=== PATIENT | male | born 1965 | race Caucasian/White ===

== ENCOUNTER 2022-12-12 18:54 | Emergency (ER) | payer BC, SELFPAY ==
[2022-12-12 18:55] VITALS: BP 177/99; PULSE 95; RESP 20; TEMP 36.7; O2SAT 100; BMI 35.1
--- NOTE | 2022-12-12 19:04 | ECG_ITS ---
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 Measurements Intervals [place] Rate: 93 P: 24 NE: 150 QRS: -79 QRSD: 146 T: -3 QT: 385 QTc: 480 Interpretive Statements SINUS RHYTHM RIGHT BUNDLE BRANCH BLOCK [120+ ms QRS DURATION, UPRIGHT V1, 40+ ms S IN I/aVL/V4/V5/V6] LEFT ANTERIOR FASCICULAR BLOCK [QRS AXIS <= -45, QR IN I, RS IN II] POSSIBLE SEPTAL MYOCARDIAL INFARCTION , OF INDETERMINATE AGE [30 ms Q WAVE IN V1/V2] No previous ECG available for comparison Electronically Signed On 12-12-2022 21:07:33 CDT by Jean De La Fuente M.D. [id number]
--- NOTE | 2022-12-12 19:15 | W.ED.CHESTPA ---
HPI - Chest Pain General: Chief Complaint: Chest Pain Stated Complaint: CHEST PAIN Time Seen by Provider: 12/12/22 19:15 History of Present Illness: Mr Mathias is a 57-year-old gentleman with longstanding history of hypertension and relatively recent hospitalization for new onset atrial fibrillation presenting to the emergency department for palpitations and chest discomfort. Reports he was in [facility] in the ICU for new onset A-fib and was discharged on medications which she has been taking. Today he noted some mild palpitations and chest discomfort. Since onset symptoms have persisted and are mild to moderate. No other specific changes in health, exacerbating, or alleviating factors identified. Onset (ago): hour(s) Timing of current episode: constant Prior episodes: Yes Onset: during rest Pain location: substernal Pain radiation: none Severity: mild Relieving factors: nothing Exacerbating factors: nothing Associated symptoms: Reports nausea and palpitations Review of Systems General: Reports: 10 or more systems reviewed and unremarkable except in HPI and below Card: Reports: palpitations GI: Reports: nausea PFSH ED PFSH: Medical History (Updated 12/20/22 @ 00:02 by CHULA Parsons) Atrial fibrillation CKD (chronic kidney disease) HTN (hypertension) Surgical History (Updated 12/12/22 @ 19:25 by Momo Simental MD) History of nephrectomy Physical Exam Const: COMMON NORMALS: alert GENERAL APPEARANCE: cooperative and well developed HENMT: COMMON NORMALS: normocephalic and atraumatic HEAD & SCALP: normocephalic and atraumatic THROAT: posterior oropharynx normal Eye: COMMON NORMALS: conjunctivae normal CONJUNCTIVA: Yes conjunctivae normal SCLERA: sclerae normal Neck/C-Spine: COMMON NORMALS: supple GENERAL: Yes trachea midline Resp: COMMON NORMALS: normal respiratory effort EFFORT & INSPECTION: Yes able to speak in complete sentences Cardio: COMMON NORMALS: regular rate and regular rhythm RATE: regular rate RHYTHM: regular rhythm GI: COMMON NORMALS: Soft to palpation PALPATION: Yes Soft to palpation and No Tenderness to palpation present (GI) PERCUSSION: normal to percussion Extremity: GENERAL: Yes normal exam except as noted and No edema Neuro: COMMON NORMALS: moves all extremities SENSORIUM/ORIENTATION: Yes alert and No Orientation impaired Psych: COMMON NORMALS: mental status grossly normal and Normal thought process present THOUGHT PROCESS: Normal thought process present Course Vital Signs: Vital signs: Vital Signs Temperature 98.1 F 12/12/22 18:55 Pulse Rate 95 12/12/22 23:05 Respiratory Rate 17 12/12/22 23:05 Blood Pressure 134/109 12/12/22 23:05 Pulse Oximetry 97 12/12/22 23:05 Oxygen Delivery Me thod Room Air 12/12/22 21:22 MDM - Chest Pain Medical Decision Making 57-year-old gentleman presenting with chest discomfort. Recent diagnosis of A-fib and inpatient management at outside facility. EKG demonstrates sinus rhythm with right bundle branch block, no STEMI. Labs with mild leukocytosis, normal hemoglobin and platelet count. Metabolic panel with perhaps mild dehydration. Magnesium low. Negative range 2-hour delta troponin. Chest x-ray with no lobar consolidation or pneumothorax. On review of prior records labs are similar. I do not believe that inpatient management is required for additional testing. Plan to increase Cardizem. The results of ED evaluation were discussed with the patient including prescriptions and/or symptomatic cares (if applicable) including appropriate and responsible use, followup plan, and return precautions. The patient verbalized understanding and felt safe for discharge. Medical Records I reviewed the patient's medical records. Lab Data I reviewed the patient's lab results. 12/12/22 19:01 12/12/22 19:01 Radiology Impressions Chest X-Ray 12/12/22 19:20 IMPRESSION: No acute cardiopulmonary abnormality. Laboratory Results WBC 11.4 10^3/uL (4.0-10.0) H 12/12/22 19:01 RBC 4.32 10^6/uL (4.1-5.3) 12/12/22 19:01 Hgb 12.8 g/dL (11.7-16.6) 12/12/22 19:01 Hct 38.4 % (42.0-52.0) L 12/12/22 19: MCV 88.9 fl (80-94) 12/12/22 19: MCH 29.6 pg (28.0-34.0) 12/12/22 19: MCHC 33.3 g/dL (30.0-36.0) 12/12/22 19: RDW 15.4 % (12.1-15.1) H 12/12/22 19:01 Plt Count 238 10^3/cmm (130-400) 12/12/22 19:01 MPV 10.9 fL (7.4-10.4) H 12/12/22 19:01 Neut % (Auto) 62.2 % 12/12/22 19:01 Lymph % (Auto) 25.7 % 12/12/22 19:01 [place] % (Auto) 9.7 % 12/12/22 19:01 Eos % (Auto) 1.7 % 12/12/22 19:01 Baso % (Auto) 0.3 % 12/12/22 19:01 Neut # (Auto) 7.11 10^3/uL (1.8-7.7) 12/12/22 19:01 Lymph # (Auto) 2.9 10^3/uL (0.8-4.8) 12/12/22 19:01 [place] # (Auto) 1.1 10^3/uL (0.2-0.9) H 12/12/22 19:01 Eos # (Auto) 0.2 10^3/uL (0.0-0.8) 12/12/22 19:01 Baso # (Auto) 0.0 10^3/uL (0.0-0.1) 12/12/22 19:01 Nucleated RBC % (auto) 0 % 12/12/22 19: Nucleated RBCs # 0.0 /100WBC 12/12/22 19:01 Sodium 138 mmol/L (136-145) 12/12/22 19:01 Potassium 4.0 mmol/L (3.5-5.1) 12/12/22 19:01 Chloride 103 mmol/L (98-107) 12/12/22 19:01 Carbon Dioxide 21 mmol/L (22-29) L 12/12/22 19:01 Anion Gap 18.0 (5-19) 12/12/22 19:01 BUN 33 mg/dL (6-20) H 12/12/22 19:01 Creatinine 2.0 mg/dL (0.7-1.2) H 12/12/22 19:01 GFR Calculation 34.5 mL/min (90-130) L 12/12/22 19:01 Glucose 163 mg/dL (65-115) H 12/12/22 19:01 Calculated Osmolality 297 mOsm/kg (285-295) H 12/12/22 19: Calcium 9.3 mg/dL (8.5-10.5) 12/12/22 19: Magnesium 1.3 mg/dL (1.7-2.3) L 12/12/22 19: Total Bilirubin 0.3 mg/dL (0.15-1.2) 12/12/22 19: AST 26 U/L (0-40) 12/12/22 19: ALT 25 U/L (0-41) 12/12/22 19: Alkaline Phosphatase 158 U/L (40-130) H 12/12/22 19: Troponin T Baseline 62 ng/L (0-15) H 12/12/22 19: Troponin T 120 Minute 60.47 ng/L (0-15) H 12/12/22 21:00 Delta Troponin T -1.53 ABS# (0-10) L 12/12/22 21:00 NT-Pro-B Natriuret Pep 693 pg/mL (0-125) H 12/12/22 19: Total Protein 7.4 g/dL (6.6-8.7) 12/12/22 19: Albumin 4.3 g/dL (3.5-5.2) 12/12/22 19: Globulin 3.1 g/dL (1.3-4.6) 12/12/22 19: TSH 2.26 uIU/mL (0.27-4.20) 12/12/22 19:01 Discharge Plan Discharge Patient Disposition: Home Clinical Impression: Chest pain, Palpitations, Hypomagnesemia, Creatinine elevation Condition: Stable Prescriptions: New Cardizem CD 240 mg capsule,extended release 24hr 240 mg PO DAILY Qty: 30 0RF Discontinued diltiazem HCl 180 mg capsule,extended release 24hr 180 mg PO DAILY No Action atorvastatin 40 mg tablet 40 mg PO BEDTIME carvedilol 25 mg tablet 25 mg PO BID amlodipine 5 mg tablet 10 mg PO DAILY omeprazole 40 mg capsule,delayed release(DR/EC) 40 mg PO BID glimepiride 2 mg tablet 2 mg PO DAILY alprazolam 0.5 mg tablet 0.5 mg PO DAILY PRN (Reason: Anxiety) tamsulosin 0.4 mg capsule 0.4 mg PO BEDTIME sodium bicarbonate 650 mg tablet 650 mg PO BID buspirone 30 mg tablet 30 mg PO BID allopurinol 300 mg tablet 300 mg PO DAILY hydralazine 50 mg tablet 50 mg PO TID furosemide 20 mg tablet 20 mg PO DAILY albuterol sulfate 90 mcg/actuation HFA aerosol inhaler 1 - 2 puff INHALATION Q6H PRN (Reason: Shortness Of Breath) lisinopril 40 mg tablet 40 mg PO DAILY bupropion HCl 300 mg tablet extended release 24 hr 300 mg PO DAILY Rx Instructions: Take 300 mg orally with 150 mg orally to equal 450 mg daily bupropion HCl 150 mg tablet extended release 24 hr 150 mg PO DAILY Rx Instructions: Take 150mg orally with 300 mg orally to equal 450 mg daily eszopiclone 3 mg tablet 3 mg PO BEDTIME PRN (Reason: Insomnia) Novolin 70-30 FlexPen U-100 100 unit/mL (70-30) insulin pen See Rx Instructions .ROUTE .COMPLEX Rx Instructions: 20 units in the morning / 15 units in the evening Eliquis 5 mg tablet 5 mg PO BID Farxiga 5 mg tablet 5 mg PO DAILY Trulicity 1.5 mg/0.5 mL pen injector 1.5 mg SUBCUT Q7D Rx Instructions: On Saturday aspirin 81 mg Tablet,Delayed Release (Dr/Ec) 81 mg PO BEDTIME Discharge Orders: Discharge ED (Routine); Ordered 12/12/22 Ordered By: Momo Simental Discharge Diet: Usual diet Discharge Activity: Limit activity as instructed Patient Instructions: A-fib (Atrial Fibrillation) (ED), Chronic Kidney Disease (ED), Hypomagnesemia (ED) Activity Restrictions/Additional Instructions: Thank you for visiting the emergency department. You were seen and evaluated for palpitations. The exact cause your symptoms is unclear however may be related to arrhythmia. 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 Please ensure that you are staying hydrated. Return to the emergency department for recurrent or worsening symptoms or anything else that you are concerned about and feel needs emergency department evaluation. Coding Level of Care Code ED Wire Repairer for tSephanie Mendenhall
--- NOTE | 2022-12-12 19:20 | XRR_ITS ---
PROCEDURE INFORMATION: Exam: XR Chest Exam date and time: 12/12/2022 7:27 PM Age: 57 years old Clinical indication: Pain; Chest pressure; Additional info: Chest pain, palpitations TECHNIQUE: Imaging protocol: Radiologic exam of the chest. Views: 1 view. COMPARISON: No relevant prior studies available. FINDINGS: Tubes, catheters and devices: Overlying monitor leads are seen. Lungs: Unremarkable. No consolidation. Pleural spaces: Unremarkable. No pleural effusion. No pneumothorax. Heart/Mediastinum: Unremarkable. No cardiomegaly. Bones/joints: Mild spondylotic change thoracic spine. XR/XR chest 1V portable [id number] IMPRESSION: No acute cardiopulmonary abnormality.
[2022-12-12 19:32] LABS: Basophils % 0.3 %; Eosinophils # 0.2 10^3/uL (0.0-0.8); Eosinophils % 1.7 %; Hematocrit 38.4 % (42.0-52.0); Hemoglobin 12.8 g/dL (11.7-16.6); Lymphocytes # 2.9 10^3/uL (0.8-4.8); Lymphocytes % 25.7 %; Mean Corpuscular HGB Conc 33.3 g/dL (30.0-36.0); Mean Corpuscular Hemoglobin 29.6 pg (28.0-34.0); Mean Corpuscular Volume 88.9 fl (80-94); Mean Platelet Volume 10.9 fL (7.4-10.4); Monocytes # 1.1 10^3/uL (0.2-0.9); Monocytes % 9.7 %; Neutrophils # 7.11 10^3/uL (1.8-7.7); Neutrophils % 62.2 %; Nucleated Red Blood Cells % 0 %; Platelet Count 238 10^3/cmm (130-400); Red Blood Count 4.32 10^6/uL (4.1-5.3); Red Cell Distribution Width 15.4 % (12.1-15.1); White Blood Count 11.4 10^3/uL (4.0-10.0)
[2022-12-12 19:36] VITALS: BP 153/99; PULSE 90; RESP 18; O2SAT 99
[2022-12-12 20:00] LABS: Troponin(5th) Baseline 62 ng/L (0-15)
[2022-12-12 20:07] LABS: Alanine Aminotransferase 25 U/L (0-41); Albumin Level 4.3 g/dL (3.5-5.2); Alkaline Phosphatase 158 U/L (40-130); Aspartate Amino Transferase 26 U/L (0-40); Blood Urea Nitrogen 33 mg/dL (6-20); Calcium 9.3 mg/dL (8.5-10.5); Carbon Dioxide 21 mmol/L (22-29); Chloride 103 mmol/L (98-107); Globulin 3.1 g/dL (1.3-4.6); Glomerular Filtration Rate 34.5 mL/min (90-130); Glucose 163 mg/dL (65-115); Magnesium 1.3 mg/dL (1.7-2.3); NT Pro B Type Natriuretic Pept 693 pg/mL (0-125); Osmolality Calculated 297 mOsm/kg (285-295); Sodium 138 mmol/L (136-145); Thyroid Stimulating Hormone 2.26 uIU/mL (0.27-4.20); Total Bilirubin 0.3 mg/dL (0.15-1.2); Total Protein 7.4 g/dL (6.6-8.7)
[2022-12-12] MEDS: magnesium sulfate premix 2 GM/50 ML PIGGYBACK IV (21:07)
[2022-12-12 21:22] VITALS: BP 167/99; PULSE 88; RESP 18; O2SAT 99
--- NOTE | 2022-12-12 21:39 | ECG_ITS ---
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 Measurements Intervals [place] Rate: 86 P: 21 [place]: 150 QRS: -75 QRSD: 142 T: -5 QT: 401 QTc: 481 Interpretive Statements SINUS RHYTHM WITH OCCASIONAL SUPRAVENTRICULAR PREMATURE COMPLEXES LEFT AXIS DEVIATION [QRS AXIS < -30] RIGHT BUNDLE BRANCH BLOCK [120+ ms QRS DURATION, UPRIGHT V1, 40+ ms S IN I/aVL/V4/V5/V6] Compared to ECG 12/12/2022 19:04:22 Left-axis deviation now present Left anterior fascicular block no longer present Myocardial infarct finding no longer present Electronically Signed On 12-13-2022 7:36:55 CDT by Jean De La Fuente M.D. [id number]
[2022-12-12 21:43] LABS: Troponin 5 2HR 60.47 ng/L (0-15)
[2022-12-12 21:44] LABS: Troponin 5 2HR Delta -1.53 ABS# (0-10)
[2022-12-12 23:05] VITALS: BP 134/109; PULSE 95; RESP 17; O2SAT 97
--- NOTE | 2022-12-19 11:06 | DCPLANNER ---
internal audit senior manager called patient due to no primary care physician - no answer at this time.
== END 2022-12-12 23:06 | disposition home or self-care (01) ==
PROVIDERS: Emergency Provider Emergency Medicine
DX: R07.9 Chest pain, unspecified (principal); R00.2 Palpitations; E83.42 Hypomagnesemia; R79.9 Abnormal finding of blood chemistry, unspecified; Z79.01 Long term (current) use of anticoagulants; Z79.4 Long term (current) use of insulin; Z79.85 Long-term (current) use of injectable non-insulin antidiabetic drugs; Z79.82 Long term (current) use of aspirin; I12.9 Hypertensive chronic kidney disease with stage 1 through stage 4 chronic kidney disease, or unspecified chronic kidney disease; N18.9 Chronic kidney disease, unspecified
CPT/HCPCS: 71045; 80053; 83735; 83880; 84443; 84484; 85025; 93005; 96365; 99285; J3475